=== PATIENT | male | born 1940 | race Caucasian/White ===

== ENCOUNTER 2017-02-11 13:39 | Day surgery (SDC) | payer MEDICARE, OTHER ==
[~2017-02-11] VITALS: Ht 190.5 cm; Wt 99.0 kg
--- NOTE | 2017-02-15 08:16 | CVR ---
ADMIT: 02/11/2017 RM/LOC: [facility] MR#: [id number] [address] [place] [address] Cardioversion Report SEX: M AGE: 76 : 1940 DATE: 02/11/2017 INDICATION: Jorge is a 76-year-old male with history of paroxysmal atrial fibrillation. He had recurrent symptomatic atrial fibrillation this morning with rapid ventricular response. He presented to the clinic and we scheduled him for elective cardioversion this afternoon. PROCEDURES PERFORMED: 1. Direct current cardioversion. 2. Sedation by Anesthesia. DESCRIPTION OF PROCEDURE: The patient was prepped in the usual fashion and given propofol by Anesthesia. He received a 120-joule biphasic synchronized shock converting him from atrial fibrillation with rapid ventricular response to a sinus rhythm with old left bundle-branch block. The patient tolerated the procedure well and there were no complications. The patient will remain on his Xarelto for anticoagulation and Coreg for beta-joi. Antiarrhythmics are contraindicated as he has had a prolonged QT and history of torsades. SUMMARY: Successful cardioversion from atrial fibrillation to a normal sinus rhythm. Rodolfo Christina MD/ kelsea JOB #: [id number] CC: Rodolfo Christina, Attending Physician Skinny Carson, Family Physician Skinny Carson MD
== END 2017-02-11 15:35 | disposition home or self-care (01) ==
LOC: SSS 13:39
DX: I48.1 Persistent atrial fibrillation (principal); I44.7 Left bundle-branch block, unspecified; I10 Essential (primary) hypertension; F17.200 Nicotine dependence, unspecified, uncomplicated; M19.90 Unspecified osteoarthritis, unspecified site; F41.9 Anxiety disorder, unspecified; M10.9 Gout, unspecified; Z90.49 Acquired absence of other specified parts of digestive tract; Z98.890 Other specified postprocedural states; Z88.8 Allergy status to other drugs, medicaments and biological substances; Z79.899 Other long term (current) drug therapy; Z86.79 Personal history of other diseases of the circulatory system